=== PATIENT | male | born 1945 | race Caucasian/White ===

== ENCOUNTER 2023-05-01 05:46 | Outpatient (REF) | payer MEDICARE, OTHER, SELFPAY ==
[2023-05-01 05:58] LABS: MANUAL DIFF FLAG NO
[2023-05-01 06:05] LABS: Basophils Absolute Auto 0.1 X10*3/uL (0.0-0.2); Basophils Percent Auto 0.9 % (0-2); Eosinophils Absolute Auto 0.6 X10*3/uL (0.0-0.4); Eosinophils Percent Auto 4.7 % (0-4); Hematocrit 26.3 % (42.0-52.0); Hemoglobin 8.8 g/dl (14.0-18.0); Imm Gran Abs Auto 0.64 X10*3/uL (0.00-0.03); Imm Gran Pct Auto 4.8 % (0.0-0.4); Lymphocytes Absolute Auto 2.7 X10*3/uL (1.2-4.9); Lymphocytes Percent Auto 20.6 % (20-40); Mean Corpuscular HGB Conc 33.5 g/dl (31.0-36.0); Mean Corpuscular Hemoglobin 31.1 pg (27.0-33.0); Mean Corpuscular Volume 92.9 fL (80.0-98.0); Mean Platelet Volume 9.5 fL (9.4-12.4); Monocytes Absolute Auto 1.1 X10*3/uL (0.1-1.2); Neutrophils Absolute Auto 8.1 x10*3/uL (2.0-8.3); Platelet Count 423 X10*3/uL (160-400); Red Blood Count 2.83 X10*6/uL (4.60-5.80); Red Cell Distribution Width 15.9 % (11.0-16.0); White Blood Count 13.3 X10*3/uL (4.8-10.8)
[2023-05-01 06:21] LABS: Alanine Aminotransferase 214 U/L (0-40); Albumin Level 2.7 g/dL (3.5-5.0); Alkaline Phosphatase 291 U/L (39-117); Anion Gap 10 (12-20); Aspartate Amino Transferase 160 U/L (5-37); Bilirubin Total 0.5 mg/dL (0.0-1.0); Blood Urea Nitrogen 14 mg/dL (9-16); Calcium 8.7 mg/dL (8.4-10.2); Carbon Dioxide 23 mmol/L (22-29); Chloride 106 mmol/L (96-108); Estimated Glomerular Filt Rate > 60; Glucose Random 94 mg/dL (60-115); Potassium 4.2 mmol/L (3.3-5.1); Sodium 135 mmol/L (135-145); Total Protein 6.7 g/dL (6.5-8.0)
== END 2023-05-01 05:47 | disposition home or self-care (01) ==
LOC: HO.MMNH1L 05:46
PROVIDERS: Visit Provider Family Medicine
DX: J96.90 Respiratory failure, unspecified, unspecified whether with hypoxia or hypercapnia (principal)
CPT/HCPCS: 36415; 80053; 85025